=== PATIENT | female | born 1940 | race Caucasian/White ===

== ENCOUNTER → 2018-05-19 | Day surgery (SDC) | payer OTHER ==
[~2018-05-19] MED LIST: CHOLESTIPOL PO; COREG25 MG PO; COZAAR 25 MG TA25 M1 PO; LYRICA 50 MG50 MG PO; MAGOX 400400 MG PO; MYRBETRIQ25 MG PO; NORCO 5-325 TA1 EACH PO; NORVASC5 MG PO; OSTERA TABLET1 EAC1 PO; SYMBICORT160 MCG/4. INH; ZOLOFT50 MG PO
--- NOTE | ~2018-05-19 | OP ---
[facility] [address] [place] [address] OPERATIVE REPORT Name: NORMA OSORIO Room: [facility]#: [id number] Admission: 05/19/18 Attend Phys: Arpan Vidal Discharge: Date of : 36 Report #: [id number] THIS REPORT FOR: //name// CC: Arpan Castro DATE OF SERVICE: 05/19/2018 PREOPERATIVE DIAGNOSIS: Internal and external hemorrhoids. POSTOPERATIVE DIAGNOSIS: Internal and external hemorrhoids. PROCEDURE: Excision of internal and external hemorrhoids, two columns. SURGEON: Arpan Vidal MD. ANESTHESIA: General. ESTIMATED BLOOD LOSS: Minimal. SPECIMEN: Internal and external hemorrhoids. DESCRIPTION OF PROCEDURE: After informed consent was obtained, the patient was brought to the operating room and placed supine. SCDs were placed and working. Preoperative antibiotics were administered, general anesthesia was induced. The patient was placed in the dorsal lithotomy position. The area was then prepped and draped in the usual sterile fashion. Digital rectal exam was performed. This demonstrated internal and external hemorrhoids. Pike speculum was inserted. There were no masses found. She had two columns on the right side. They were grasped. They were ligated at their base using the LigaSure device. There was excellent hemostasis. The anus was then packed with Gelfoam. Sterile dressings were applied after the area was anesthetized with 45 mL of 0.5% Marcaine and 1% lidocaine solution. COMPLICATIONS: None. DISPOSITION: The patient was taken to recovery room in satisfactory condition. By: 0936 [id number] Vidal MD /nt
[2018-05-19 07:11] LABS: HEMATOCRIT 39.3 % (37.0-47.0); MCH 28.8 pg (26.0-34.0); MCV 87.2 fL (80.0-100.0); RBC 4.51 mil/uL (4.20-5.00); RDW-CV 13.8 % (10.5-14.5); WBC 4.5 thou/uL (4.0-11.0)
[2018-05-19 07:19] LABS: CALCIUM 8.5 mg/dL (8.5-10.1); CREATININE 1.1 mg/dL (0.6-1.3); POTASSIUM 3.9 mmol/L (3.5-5.1)
--- NOTE | 2018-05-19 16:47 | EKG ---
[place] [address] ELECTROCARDIOGRAM REPORT Name: NORMA OSORIO Room: [facility]#: [id number] Admission: 05/19/18 Attend Phys: Arpan Vidal Discharge: Date of : 36 Report #: [id number] THIS REPORT FOR: //name// [facility] Test Date: 2018-05-19 Test Time: 07:47:06 Pat Name: NORMA OSORIO Department: Room: Gender: F Director Of Employee Development: : 1940 Requested By: Arpan Vidal Order Number: [id number] Maricruz MD: Seth Garcia Measurements Intervals [place] Rate: 72 P: 57 NE: 197 QRS: 26 QRSD: 97 T: 81 QT: 392 QTc: 430 Interpretive Statements Sinus rhythm intermittent LBBB Compared to ECG 02/14/2009 08:01:02 No significant changes Electronically Signed On 05-19-2018 16:47:26 CDT by Seth Garcia [email or web address] <ELECTRONICALLY SIGNED> By: Seth Garcia MD, [facility] 05/19/18 1647 D: 03/746 6 Seth Garcia MD, FACC /EPI
--- NOTE | 2018-05-21 16:06 | PATH ---
[address] [address] PATHOLOGY RPT PROCEDURE Name: DILDINE,NORMA L Room: [facility]#: [id number] Admission: 05/19/18 Date of : 36 Discharge: Report #: [id number] Path Case #: [id number] [facility] Accession Number: [id number] . 01 Material submitted: . HEMMORHOID . 01 Clinical history: . Hemorrhoids . 02 Diagnosis: Hemorrhoids: - Benign skin and colonic mucosa with prominent hemorrhoids. (RICH:james; 05/21/2018) MBR/05/21/2018 . 02 Electronically signed: . Shaan Cole MD, Pathologist NPI- [id number] . 01 Gross description: . Received in formalin labeled "Dildine, Norma, hemorrhoids," and additionally labeled on the requisition as "hemorrhoid," are 2 segments of cope-pink epithelial covered tissue measuring 1.8 x 1.2, 1.4 and 3.1 x 1.7 x 1.4 cm in maximum dimensions. The epithelial surfaces appear intact, without grossly apparent lesions. On cut section, the subepithelial tissue has a highly vascular appearance. 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 (TSD; 05/19/2018) TOB/TOB . 02 Pathologist provided ICD-10: K64.9 . 02 CPT . 823669 Specimen Comment: A courtesy copy of this report has been sent to Specimen Comment: [phone], . Specimen Comment: Report sent to / DR BRAR Performed at: [address], [place] [id number] MD Fermin Lowry MD Phone: [phone] Performed at: 02 [facility] [address], [place], [place] [id number] MD Shaan Cole MD Phone: [phone]
== END | disposition home or self-care (01) ==
LOC: M.SUR 06:37
PROVIDERS: Surgery
DX: K64.4 Residual hemorrhoidal skin tags (principal); K64.8 Other hemorrhoids

== ENCOUNTER → 2018-10-05 | Day surgery (SDC) | payer OTHER ==
[~2018-10-05] MED LIST changes: +COLESTID1 GM PO; +GABAPENTIN 100100 MG PO; +ULTRAM 50MG TAB50 MG PO; +VITAMIN D1000 UNI1 PO
[2018-10-05 06:57] LABS: HEMATOCRIT 42.8 % (37.0-47.0); MCH 27.8 pg (26.0-34.0); MCHC 32.7 g/dL (28.0-37.0); MPV 7.3 fl. (7.2-11.1); RBC 5.03 mil/uL (4.20-5.00); RDW-CV 14.9 % (10.5-14.5); WBC 5.4 thou/uL (4.0-11.0)
[2018-10-05 07:12] LABS: CALCIUM 9.1 mg/dL (8.5-10.1)
== END | disposition home or self-care (01) ==
LOC: M.SUR 06:26
PROVIDERS: Surgery
DX: K64.8 Other hemorrhoids (principal); K64.4 Residual hemorrhoidal skin tags; Z88.8 Allergy status to other drugs, medicaments and biological substances; Z79.899 Other long term (current) drug therapy

== ENCOUNTER → 2018-11-09 | Outpatient (CLI) | payer OTHER ==
--- NOTE | 2018-11-16 08:08 | PF ---
[address] [address] PULMONARY FUNCTION REPORT Name: NORMA OSORIO Garima Room: [facility]#: [id number] Admission: 11/09/18 Attend Phys: Marilou Castro MD Discharge: Date of : 36 Report #: [id number] THIS REPORT FOR: //name// CC: Marilou Castro PULMONARY FUNCTION TEST Spirogram shows decreased FEV1 and forced vital capacity with normal ratio consistent with restrictive defect; however, patient has decreased midflow rates suggestive of peripheral airway obstruction. Lung volumes show decreased lung capacity of 68% and a decreased diffusion of 57%. IMPRESSION: Restrictive lung disease with decreased diffusion, suspect intraparenchymal intrapulmonary defect, decreased midflow suggest early mild peripheral airway obstruction. Clinical correlation is indicated. <ELECTRONICALLY SIGNED> By: Juarez Garay MD 11/16/18 0808 1604 0043Asem Bola Hare MD /nt
--- NOTE | 2018-11-20 07:41 | PF ---
[address] [address] PULMONARY FUNCTION REPORT Name: NORMA OSORIO Garima Room: [facility]#: [id number] Admission: 11/09/18 Attend Phys: Marilou Castro MD Discharge: Date of : 36 Report #: [id number] THIS REPORT FOR: //name// CC: Marilou Castro Spirogram showed forced vital capacity was 76% at 1.67 liters, FEV1 to FVC ratio was normal at 74%, FEV1 was borderline at 79%, 1.25 liters. A lung capacity with lung volumes was 80%, borderline, 3.37 liters. The diffusion capacity was 64%, but corrected for lung volumes. IMPRESSION AND PLAN: Decreased midflow rates suggestive of peripheral airway disease. Correlation for obstructive lung disease clinically is indicated. Lung volumes are borderline normal. Clinical correlation is indicated. Mildly decreased diffusion corrected for lung volume. Clinical correlation for obstructive lung disease is indicated, which is mild. <ELECTRONICALLY SIGNED> By: Juarez Garay MD 11/20/18 0741 1429 [id number] Hare MD /nt
== END ==
LOC: M.PUL 11:00
DX: J42 Unspecified chronic bronchitis (principal); Z88.8 Allergy status to other drugs, medicaments and biological substances

== ENCOUNTER → 2020-09-19 | Outpatient (CLI) | payer OTHER | LOC: M.RAD 12:19 | PROVIDERS: ATTEND Internal Medicine | DX: M47.812 Spondylosis without myelopathy or radiculopathy, cervical region (principal); M54.2 Cervicalgia ==